=== PATIENT | female | born 1980 | race Caucasian/White ===

== ENCOUNTER 2023-11-26 14:43 | Emergency (ER) | payer BC ==
[~2023-11-26] VITALS: Ht 170.2 cm; Wt 120.2 kg
[2023-11-26 14:46] VITALS: BP 141/94; PULSE 98; RESP 18; TEMP 97.4; O2SAT 96
[2023-11-26] MEDS ORDERED: IBUPROFEN 600 MG TAB PO ONE (16:10)
[2023-11-26] MEDS: LORazepam 1 MG TAB PO ONE (16:32)
[2023-11-26] MEDS: ACETAMINOPHEN EXTRA STRENGTH 500 MG TAB PO ONE (16:33)
[2023-11-26] MEDS: DEXAMETHASONE 10 MG/ML VIAL IM ONE (16:34)
[2023-11-26 17:17] LABS: FLU A ANTIGEN negative (NEGATIVE); FLU B ANTIGEN NEGATIVE (NEGATIVE)
[2023-11-26] MEDS ORDERED: ACET-9882 PO (17:38)
[2023-11-26] MEDS ORDERED: BENZ-300 PO (17:38)
[2023-11-26] MEDS ORDERED: PROM118S5 PO (17:38)
[2023-11-26] MEDS ORDERED: NIRM1TAB9 PO (17:38)
== END 2023-11-26 17:53 | disposition home or self-care (01) ==
LOC: MED 14:43
DX: U07.1 COVID-19 (principal); E03.9 Hypothyroidism, unspecified; Z88.0 Allergy status to penicillin; Z79.899 Other long term (current) drug therapy
CPT/HCPCS: 70360; 81025; 87081; 87426; 87804; 96372; 99284; J1100